=== PATIENT | male | born 1960 | race Caucasian/White ===

== ENCOUNTER 2022-11-18 11:16 | Inpatient (IN) | payer OTHER, SELFPAY ==
[2022-11-18] VITALS (34 sets, daily range): BP systolic 133–179; BP diastolic 89–116; PULSE 50–81; RESP 16–18; TEMP 36.1–36.4; O2SAT 94–99; BMI 5734.1; BMI 34.7
--- NOTE | 2022-11-18 11:56 | ED.NURSE ---
started #20 jelco as a saline lock in the right upper forearm. able to draw the labs and running a ED POC trop for patient. EKG done, Placed on cardiac montior.
[2022-11-18 12:11] LABS: Troponin, Point-of-Care* 0.02 ng/ml (0.01-0.04)
--- NOTE | 2022-11-18 12:37 | ED.DIZZY ---
HPI - Dizziness General Chief Complaint: Dizziness/Vertigo Stated Complaint: Dizzy, lightheaded Time Seen by Provider: 11/18/22 12:22 History of Present Illness HPI Narrative: This 62-year-old male comes in reporting an episode of lightheadedness. He states that he felt a little bit of congestion in his chest. He did not have any nausea, vomiting, shortness of breath, or obvious chest pain or pressure. He does state that his younger brother had an episode of lightheadedness with left arm pain about a year ago and needed 3 stents for coronary artery disease. He also states that his father at age 37 from heart disease. He denies having any exercise intolerance. A couple days ago he shoveled snow and did not have any symptoms. He feels back to normal at this time. Related Data Home Medications Medication Instructions Recorded Confirmed No Known Home Medications 11/18/22 11/18/22 Allergies Allergy/AdvReac Type Severity Reaction Status Date / Time No Known Drug Allergies Allergy Verified 11/18/22 11:40 Review of Systems Status of ROS: Reports: 10 or more systems reviewed and unremarkable except as noted in History and below Narrative: Constitutional: No fevers, no weight gain or loss. Eyes: No discharge. No vision changes. HENT: No congestion, no sore throat, no ear pain. Cardiovascular: No chest pain, no palpitations. Respiratory: No shortness of breath, no wheezes, no cough. Gastrointestinal: No abdominal pain, no vomiting, no diarrhea. Genitourinary: No dysuria, no hematuria. Musculoskeletal: Normal range of motion. Skin: No rashes, no pruritis. Neurological: No weakness, sensory change, speech change. Episode of lightheadedness as described above. Endo/Heme/Allergies: No bruising or bleeding. No polydipsia. Pysch: no suicidality, no anxiety, no insomnia. All other systems reviewed and are negative. PFSH PFSH Social History Smoking Status: Never smoker How often do you have a drink containing alcohol: 2-3 times a week How many standard drinks containing alcohol do you have on a typical day: 3 or 4 How often do you have six or more drinks on one occasion: Never AUDIT-C Alcohol total score: 4 Non-prescribed substance use: denies use Exam Narrative: Exam Narrative: Constitutional: Well-developed, well-nourished, no acute distress. HEENT: Normocephalic, atraumatic. Neck: Normal range of motion. Nontender. Supple. Heart: Regular. No murmurs. Normal rate. Intact distal pulses. Lungs: Clear to auscultation. No chest discomfort. No wheezes, rhonchi, or rales. Abdomen: Normal bowel sounds. Nontender. No rebound tenderness. Genitalia: Deferred. Back: No midline tenderness. Normal range of motion. Extremities: Normal range of motion. No injury. Skin: Intact. No rash. Warm. No erythema or pallor. Neurologic: No altered sensation. No weakness. Alert and oriented. Psychiatric: No suicidality. No anxiety or depression. No insomnia. Nursing notes and vitals signs are reviewed. Const: Vital Signs, click to edit/add: Vital Signs - 24 hr 11/18/22 11:33 11/18/22 12:05 11/18/22 12:06 Temperature 97.3 F L Pulse Rate 71 70 Pulse Rate [Right Pulse Oximeter] 81 Respiratory Rate 18 Blood Pressure 141/101 H Blood Pressure [Ri ght Upper Arm] 156/97 H Pulse Oximetry 97 99 99 Oxygen Delivery Me thod Room Air 11/18/22 12:30 11/18/22 12:31 11/18/22 12:32 Temperature Pulse Rate 70 71 68 Pulse Rate [Right Pulse Oximeter] Respiratory Rate Blood Pressure 155/106 H Blood Pressure [Ri ght Upper Arm] Pulse Oximetry 97 96 97 Oxygen Delivery Al thod 11/18/22 13:00 11/18/22 13:01 11/18/22 13:02 Temperature Pulse Rate 63 69 69 Pulse Rate [Right Pulse Oximeter] Respiratory Rate Blood Pressure 158/107 H Blood Pressure [Ri ght Upper Arm] Pulse Oximetry 96 96 95 Oxygen Delivery Al thod 11/18/22 13:30 11/18/22 13:32 11/18/22 13:33 Temperature Pulse Rate 68 65 65 Pulse Rate [Right Pulse Oximeter] Respiratory Rate Blood Pressure 144/107 H Blood Pressure [Ri ght Upper Arm] Pulse Oximetry 96 96 94 Oxygen Delivery Me thod 11/18/22 14:00 11/18/22 14:02 11/18/22 14:03 Temperature Pulse Rate 62 61 61 Pulse Rate [Right Pulse Oximeter] Respiratory Rate Blood Pressure 164/111 H Blood Pressure [Ri ght Upper Arm] Pulse Oximetry 96 96 95 Oxygen Delivery Me thod 11/18/22 14:30 11/18/22 14:32 11/18/22 15:00 Temperature Pulse Rate 56 L 56 L 59 L Pulse Rate [Right Pulse Oximeter] Respiratory Rate Blood Pressure 142/102 H Blood Pressure [Ri ght Upper Arm] Pulse Oximetry 96 94 95 Oxygen Delivery Me thod 11/18/22 15:01 11/18/22 15:02 11/18/22 15:30 Temperature Pulse Rate 59 L 61 58 L Pulse Rate [Right Pulse Oximeter] Respiratory Rate Blood Pressure 154/101 H Blood Pressure [Ri ght Upper Arm] Pulse Oximetry 95 94 96 Oxygen Delivery Me thod 11/18/22 15:32 11/18/22 15:33 11/18/22 16:04 Temperature Pulse Rate 63 60 59 L Pulse Rate [Right Pulse Oximeter] Respiratory Rate Blood Pressure 152/102 H Blood Pressure [Ri ght Upper Arm] Pulse Oximetry 96 96 97 Oxygen Delivery Me thod Course Vital Signs Vital signs: Initial Vital Signs Temperature 97.3 F L 11/18/22 11:33 Temperature Source Temporal Artery Scan 11/18/22 11:33 Pulse Rate 81 11/18/22 11:33 Respiratory Rate 18 11/18/22 11:33 Blood Pressure 156/97 H 11/18/22 11:33 Blood Pressure Mean 116 11/18/22 11:33 Blood Pressure Position Sitting 11/18/22 11:33 Pulse Oximetry 97 11/18/22 11:33 Oxygen Delivery Method 11/18/22 11:33 Vital Signs Temperature 97.3 F L 11/18/22 11:33 Pulse Rate 81 11/18/22 11:33 Respiratory Rate 18 11/18/22 11:33 Blood Pressure 156/97 H 11/18/22 11:33 Pulse Oximetry 97 11/18/22 11:33 Oxygen Delivery Method 11/18/22 11:33 Temperature 97.3 F L 11/18/22 11:33 Pulse Rate 59 L 11/18/22 16:04 Respiratory Rate 18 11/18/22 11:33 Blood Pressure 152/102 H 11/18/22 15:32 Pulse Oximetry 97 11/18/22 16:04 Oxygen Delivery Method 11/18/22 11:33 MDM - Dizziness MDM Narrative Medical decision making narrative: This patient comes in reporting some lightheadedness with mild diaphoresis that happened this morning when undergoing light activity. Initial EKG and troponin returned with normal results. Additionally lab results otherwise returned normal also. He has not had any further symptoms and feels normal. Repeat troponin returned at 0.05 which was increased from 0.02. A couple hours later, about 6 hours after his event this morning, his troponin I from the lab returns at 0.12. I did give him 4 baby aspirin. I spoke with the grocery store associate stonework supervisor at [facility], Dr. Clayton, who recommended observation overnight in the hospital with an echocardiogram tomorrow. If troponin is trending upward yet he can receive heparin. Lab Data Labs: Lab Results 11/18/22 11/18/22 11/18/22 Range/Units 12:05 12:10 12:10 WBC 4.52 (4.50-11.00) K/uL RBC 5.50 (4.30-5.90) m/uL Hgb 16.1 (13.5-17.5) gm/dL Hct 47.4 (37.0-53.0) % MCV 86 (80-100) fL MCH 29 (26-34) pg MCHC 34 (32-36) gm/dL RDW Coeff of Cheli 12.3 (11.5-15.5) % Plt Count 221 (140-440) K/uL Neut % (Auto) 58.2 (42.0-72.0) % Lymph % (Auto) 32.5 (20-44) % [place] % (Auto) 8.2 (0.0-11.0) % Eos % (Auto) 0.7 (0.0-7.0) % Baso % (Auto) 0.2 (0.0-3.0) % Neut # (Auto) 2.63 (1.7-7.0) K/uL Lymph # (Auto) 1.47 (0.90-2.90) K/uL [place] # (Auto) 0.40 (0.00-0.90) K/UL Eos # (Auto) 0.03 (0.00-0.50) K/uL Baso # (Auto) 0.01 (0.00-0.30) K/uL Sodium 136 (135-149) mmol/L Potassium 4.5 (3.6-5.1) mmol/L Chloride 106 (96-114) mmol/L Carbon Dioxide 24 (20-32) mmol/L BUN 18 (7-30) mg/dL Creatinine 1.0 (0.5-1.5) mg/dL Estimated Creat Clear 102.84 Estimated GFR 85 ml/min Glucose 87 (60-115) mg/dL Calcium 9.0 (8.4-10.6) mg/dL Troponin I (0.01-0.04) ng/mL SARS-CoV-2 (PCR) (Negative) POC Troponin I 0.02 (0.01-0.04) ng/ml 11/18/22 11/18/22 11/18/22 Range/Units 13:34 14:50 15:21 WBC (4.50-11.00) K/uL RBC (4.30-5.90) m/uL Hgb (13.5-17.5) gm/dL Hct (37.0-53.0) % MCV (80-100) fL MCH (26-34) pg MCHC (32-36) gm/dL RDW Coeff of Cheli (11.5-15.5) % Plt Count (140-440) K/uL Neut % (Auto) (42.0-72.0) % Lymph % (Auto) (20-44) % [place] % (Auto) (0.0-11.0) % Eos % (Auto) (0.0-7.0) % Baso % (Auto) (0.0-3.0) % Neut # (Auto) (1.7-7.0) K/uL Lymph # (Auto) (0.90-2.90) K/uL [place] # (Auto) (0.00-0.90) K/UL Eos # (Auto) (0.00-0.50) K/uL Baso # (Auto) (0.00-0.30) K/uL Sodium (135-149) mmol/L Potassium (3.6-5.1) mmol/L Chloride (96-114) mmol/L Carbon Dioxide (20-32) mmol/L BUN (7-30) mg/dL Creatinine (0.5-1.5) mg/dL Estimated Creat Clear Estimated GFR ml/min Glucose (60-115) mg/dL Calcium (8.4-10.6) mg/dL Troponin I 0.12 H* (0.01-0.04) ng/mL SARS-CoV-2 (PCR) Negative SARS-CoV-2 (Negative) POC Troponin I 0.05 H (0.01-0.04) ng/ml ECG Data Attestation: I personally reviewed and interpreted this ECG as follows: Interpretation: Normal sinus rhythm. Rate is 74 beats per minute. There are no ST or T-wave abnormalities. Repeat EKG at approximately 2:00 p.m. shows normal sinus rhythm. Rate is 60 beats per minute. There are no specific ST or T-wave abnormalities. Discharge Plan Discharge Clinical Impression: Acute coronary syndrome Patient Disposition: Admitted As Inpatient Condition: Unchanged Prescriptions: No Action No Known Home Medications Follow Up/Referrals: Anthony Light MD [Primary Care Provider] -
[2022-11-18 12:47] LABS: Basophils Absolute Auto 0.01 K/uL (0.00-0.30); Basophils Percent Auto 0.2 % (0.0-3.0); Eosinophils Absolute Auto 0.03 K/uL (0.00-0.50); Eosinophils Percent Auto 0.7 % (0.0-7.0); Hematocrit 47.4 % (37.0-53.0); Hemoglobin* 16.1 gm/dL (13.5-17.5); Immature Granulocytes Abs Auto 0.01 K/uL (0.00-0.30); Immature Granulocytes Pct Auto 0.2 %; Lymphocytes Absolute Auto 1.47 K/uL (0.90-2.90); Lymphocytes Percent Auto 32.5 % (20-44); Mean Corpuscular HGB Conc 34 gm/dL (32-36); Mean Corpuscular Hemoglobin 29 pg (26-34); Mean Corpuscular Volume 86 fL (80-100); Monocytes Percent Auto 8.2 % (0.0-11.0); Neutrophils Absolute Auto 2.63 K/uL (1.7-7.0); Neutrophils Percent Auto 58.2 % (42.0-72.0); Platelet Count* 221 K/uL (140-440); RDW Coefficient of Variation % 12.3 % (11.5-15.5); White Blood Count* 4.52 K/uL (4.50-11.00)
[2022-11-18 13:18] LABS: Chloride* 106 mmol/L (96-114); Potassium* 4.5 mmol/L (3.6-5.1); Sodium* 136 mmol/L (135-149)
[2022-11-18 13:21] LABS: Blood Urea Nitrogen* 18 mg/dL (7-30); Carbon Dioxide* 24 mmol/L (20-32); Est. Creatinine Clearance* 102.84; Estimated Glomerular Filt Rate 85 ml/min; Glucose* 87 mg/dL (60-115)
[2022-11-18 13:29] LABS: Slide Review Reflex No
[2022-11-18 13:58] LABS: Troponin, Point-of-Care* 0.05 ng/ml (0.01-0.04)
--- NOTE | 2022-11-18 14:05 | ED.NURSE ---
Repeat EKG done and shown to ED. Pt continues to report no pain.
[2022-11-18 15:35] LABS: Troponin I* 0.12 ng/mL (0.01-0.04)
--- NOTE | 2022-11-18 15:35 | ED.NURSE ---
critical lab: trop 0.12, notified Mario ROGERS at [phone]
[2022-11-18] MEDS: ASPIRIN 81 MG TAB.CHEW 324 MG PO (15:42)
[2022-11-18 16:11] LABS: SARS PCR* Negative SARS-CoV-2 (Negative)
--- NOTE | 2022-11-18 16:21 | W.PC.EDHO ---
Primary Language: Romanian Preferred Language: Orientation Status: [x] Alert & Oriented [] Slight Confusion [] Known Dx Dementia Transfers By: [x] Assist of 1 [] Assist of 2 [] Lift Active Medications Discontinued Medications Generic Name Dose Route Start Last Admin Trade Name Ara PRN Reason Stop Dose Admin Aspirin 324 mg 11/18/22 15:38 11/18/22 15:42 Aspirin 81 Mg Tab.Chew PO 11/18/22 15:39 324 mg ONCE ONE Administration Description of Symptoms ED Triage Present Problem patient was at work and sudden onset of dizziness Description and cp in the center of the chest. felt diaphoretic. sx resolved after 15 minutes. patient is concerned about heart issues as strong family hx of heart problems ED Triage Date of Onset of 11/18/22 Symptoms Lincoln Coma Scale Lincoln coma scale total score 15 Pain Pain Scale Used Numeric (1 - 10) IV Insertion/Site Date of IV Line Insertion [ 11/18/22 Right Antecubital] Oxygen Administration Pulse Oximetry 97 Pulse Oximetry 96 Pulse Oximetry 96 Pulse Oximetry 96 Pulse Oximetry 94 Pulse Oximetry 95 Pulse Oximetry 95 Pulse Oximetry 94 Pulse Oximetry 96 Pulse Oximetry 95 Pulse Oximetry 96 Pulse Oximetry 96 Pulse Oximetry 94 Pulse Oximetry 96 Pulse Oximetry 96 Pulse Oximetry 95 Pulse Oximetry 96 Pulse Oximetry 96 Pulse Oximetry 97 Pulse Oximetry 96 Pulse Oximetry 97 Pulse Oximetry 99 Pulse Oximetry 99 Pulse Oximetry 97 Oxygen Delivery Method Room Air Cardiac Monitoring EKG Method 12 Lead EKG Method 12 Lead
--- NOTE | 2022-11-18 16:28 | P.IMHP_ITS ---
Hospitalist- H&P: HPI History of Present Illness Date Seen: 11/18/22 Chief complaint: Dizzy, lightheaded Narrative: Jamar Goodman is a 62 year old male with no significant past medical history presenting for evaluation of dizziness. The patient was outside his home earlier today when he felt dizzy and lightheaded. He went inside his home, about 10 minutes later developed vague left upper sternal chest discomfort. He denied nausea, vomiting, abdominal pain. In the ED notable labs included Troponin of 0.12. EKG showed . He currently denies chest pain, pressure, sob. His SBP was noted to be in 170s. Per patient he is not on antihypertensive medications. He was started on aspirin. His case was discussed with [facility] cardiology who recommended admission for tele, echo and possible heparin if troponin trending increasing. Review of Systems Status of ROS: Reports: 10 or more systems reviewed and unremarkable except as noted in History and below [facility] Social History (Updated 11/18/22 @ 16:33 by Tyler Ulrich MD) Narrative: Lives alone in [facility]. Negative tobacco history. Highest level of school completed/degree received: high school graduate Smoking Status: Never smoker Second hand tobacco smoke exposure: No How often do you have a drink containing alcohol: 2-3 times a week How many standard drinks containing alcohol do you have on a typical day: 1 or 2 How often do you have six or more drinks on one occasion: Never AUDIT-C Alcohol total score: 3 Non-prescribed substance use: denies use Caffeine: Yes (1 cup daily) service: No Meds Home Medications and Allergies Home Medications Medication Instructions Recorded Confirmed Type No Known Home Medications 11/18/22 11/18/22 History Allergies Allergy/AdvReac Type Severity Reaction Status Date / Time No Known Drug Allergies Allergy Verified 11/18/22 11:40 Exam Narrative: Exam Narrative: Gen: no acute distress HEENT: NCAT EOMI mmm Neck: Supple CV: RRR normal s1 s2 Lungs: CTAB Abd: Soft,nt, nd Neuro: Alert, oriented, CN grossly intact; nonfocal screening?exam Psych: appropriate affect MSK: age appropriate muscle mass Skin; Warm, dry no rash on face Const: Vital Signs, click to edit/add: Vital Signs - 24 hr 11/18/22 11:33 11/18/22 12:05 11/18/22 12:06 Temperature 97.3 F L Pulse Rate 71 70 Pulse Rate [Right Pulse Oximeter] 81 Respiratory Rate 18 Blood Pressure 141/101 H Blood Pressure [Ri ght Upper Arm] 156/97 H Pulse Oximetry 97 99 99 Oxygen Delivery Me thod Room Air 11/18/22 12:30 11/18/22 12:31 11/18/22 12:32 Temperature Pulse Rate 70 71 68 Pulse Rate [Right Pulse Oximeter] Respiratory Rate Blood Pressure 155/106 H Blood Pressure [Ri ght Upper Arm] Pulse Oximetry 97 96 97 Oxygen Delivery Me thod 11/18/22 13:00 11/18/22 13:01 11/18/22 13:02 Temperature Pulse Rate 63 69 69 Pulse Rate [Right Pulse Oximeter] Respiratory Rate Blood Pressure 158/107 H Blood Pressure [Ri ght Upper Arm] Pulse Oximetry 96 96 95 Oxygen Delivery Me thod 11/18/22 13:30 11/18/22 13:32 11/18/22 13:33 Temperature Pulse Rate 68 65 65 Pulse Rate [Right Pulse Oximeter] Respiratory Rate Blood Pressure 144/107 H Blood Pressure [Ri ght Upper Arm] Pulse Oximetry 96 96 94 Oxygen Delivery Me thod 11/18/22 14:00 11/18/22 14:02 11/18/22 14:03 Temperature Pulse Rate 62 61 61 Pulse Rate [Right Pulse Oximeter] Respiratory Rate Blood Pressure 164/111 H Blood Pressure [Ri ght Upper Arm] Pulse Oximetry 96 96 95 Oxygen Delivery Me thod 11/18/22 14:30 11/18/22 14:32 11/18/22 15:00 Temperature Pulse Rate 56 L 56 L 59 L Pulse Rate [Right Pulse Oximeter] Respiratory Rate Blood Pressure 142/102 H Blood Pressure [Ri ght Upper Arm] Pulse Oximetry 96 94 95 Oxygen Delivery Me thod 11/18/22 15:01 11/18/22 15:02 11/18/22 15:30 Temperature Pulse Rate 59 L 61 58 L Pulse Rate [Right Pulse Oximeter] Respiratory Rate Blood Pressure 154/101 H Blood Pressure [Ri ght Upper Arm] Pulse Oximetry 95 94 96 Oxygen Delivery Me thod 11/18/22 15:32 11/18/22 15:33 11/18/22 16:04 Temperature Pulse Rate 63 60 59 L Pulse Rate [Right Pulse Oximeter] Respiratory Rate Blood Pressure 152/102 H Blood Pressure [Ri ght Upper Arm] Pulse Oximetry 96 96 97 Oxygen Delivery Nd thod Hospitalist - H&P: Result Labs Labs: Short CBC 11/18/22 Range/Units 12:10 WBC 4.52 (4.50-11.00) K/uL Hgb 16.1 (13.5-17.5) gm/dL Hct 47.4 (37.0-53.0) % Plt Count 221 (140-440) K/uL BMP 11/18/22 12:10 Sodium 136 Potassium 4.5 Chloride 106 Carbon Dioxide 24 BUN 18 Creatinine 1.0 Glucose 87 Calcium 9.0 Cardiac Enzymes 11/18/22 Range/Units 14:50 Troponin I 0.12 H* (0.01-0.04) ng/mL Assessment and Plan Assessment and plan (1) Chest pain: Status: Acute (2) Hypertension: Status: Acute Plan Assessment: Jamar Goodman is a 62 year old male with no significant past medical history presenting for evaluation of dizziness. The patient was outside his home earlier today when he felt dizzy and lightheaded. He went inside his home, about 10 minutes later developed vague left upper sternal chest discomfort. He denied nausea, vomiting, abdominal pain. In the ED notable labs included Troponin of 0.12. EKG showed . He currently denies chest pain, pressure, sob. His SBP was noted to be in 170s. Per patient he is not on antihypertensive medications. He was started on aspirin. His case was discussed with [facility] cardiology who recommended admission for tele, echo and possible heparin if troponin trending increasing. EKG Normal Sinus rhythm rate 74 1. chest pain, dizziness, rule out NSTEMI -serial troponin if increasing start therapeutic heparin -tele -echo -prn morphine and nitro -lipid panel in AM -npo midnight -obtain baseline cxr 2. Hypertension -start lisinopril -prn hydralazine Code-Full DVT ppx-heparin addendum; repeta trop elevated will start heparin
--- NOTE | 2022-11-18 17:13 | ED.NURSE ---
Report called to M/S RN.
--- NOTE | 2022-11-18 17:39 | CRLHL7_ITS ---
For Patients: As a result of the Century Cures Act, medical imaging exams and procedure reports are released immediately into your electronic medical record. You may view this report before your referring provider. If you have questions, please contact your health care provider. INDICATION: Chest pain. TECHNIQUE: Chest 1 view. COMPARISON: None. FINDINGS: The cardiomediastinal silhouette size is normal. Minimal atelectasis in left lower lobe. Possible 5 mm left lower lobe nodule. No consolidation, pleural effusion or pneumothorax. The visualized osseous structures are unremarkable for age. Impression: 1. No acute cardiopulmonary abnormality. 2. Possible 5 mm left lower lobe nodule. Recommend comparison with older prior exams available. Otherwise follow up with non emergent dedicated PA and lateral chest radiographs. Dictated by Cher Esquivel MD @ 11/18/2022 6:20:53 PM (Electronically Signed)
[2022-11-18] MEDS: lisinopriL 5 MG TABLET PO (18:04)
[2022-11-18 18:35] LABS: Troponin I* 0.27 ng/mL (0.01-0.04)
[2022-11-18 19:16] LABS: Hematocrit 46.4 % (37.0-53.0); Mean Corpuscular HGB Conc 35 gm/dL (32-36); Mean Corpuscular Hemoglobin 29 pg (26-34); Mean Corpuscular Volume 85 fL (80-100); Platelet Count* 214 K/uL (140-440); Red Blood Count 5.46 m/uL (4.30-5.90); White Blood Count* 4.84 K/uL (4.50-11.00)
[2022-11-18] MEDS: HEPARIN 25,000 UNIT/500 ML BAG 20 UNIT IV (19:25)
[2022-11-18] MEDS: HEPARIN 5,000 UNIT/0.5 ML INJ 4000 UNIT IVP (19:25)
[2022-11-18] MEDS: SODIUM CHLORIDE 0.9 % (FLUSH) 10 ML SYRINGE 5 ML IVF (19:27)
[2022-11-18 19:32] LABS: Slide Review Reflex No
[2022-11-18 19:34] LABS: INR 0.96 (0.91-1.10); Prothrombin Time 13.4 Seconds
[2022-11-18 19:35] LABS: Partial Thromboplastin Time* 37 Seconds (23-33)
--- NOTE | 2022-11-18 19:35 | PC.NURSE ---
Admission-- Pleasant and cooperative, alert and oriented patient was admitted to [facility] via wheelchair at approximately 1730. VSS, though hypertensive, and pt is afebrile. SPO2 maintained >90% on RA. He denied any chest pain or SOB. Telemetry shows NSR. Troponin noted to be as high as 0.27 and heparin drip was ordered by and initiated per protocol. Report to SUE Ruiz.
[2022-11-19] VITALS (8 sets, daily range): BP systolic 125–156; BP diastolic 83–93; PULSE 40–64; RESP 16–18; TEMP 35.8–37.1; O2SAT 95–97
[2022-11-19 02:36] LABS: Partial Thromboplastin Time* 64 Seconds (23-33)
--- NOTE | 2022-11-19 05:37 | PC.NURSE ---
Shift note: Pt is doing well, denied dizziness and light headedness. PTT at 0345 came out as 64, no change in heparin dose and rate made. Pt had adequate sleep. Independently ambulated to the BR. Vitally stable.
[2022-11-19 06:39] LABS: Hematocrit 47.1 % (37.0-53.0); Mean Corpuscular HGB Conc 34 gm/dL (32-36); Mean Corpuscular Hemoglobin 29 pg (26-34); Mean Corpuscular Volume 85 fL (80-100); Platelet Count* 223 K/uL (140-440); Red Blood Count 5.52 m/uL (4.30-5.90)
[2022-11-19 06:47] LABS: Slide Review Reflex No
[2022-11-19 06:57] LABS: INR 0.94 (0.91-1.10); Prothrombin Time 13.1 Seconds
[2022-11-19 06:58] LABS: Chloride* 107 mmol/L (96-114); Potassium* 4.2 mmol/L (3.6-5.1); Sodium* 137 mmol/L (135-149)
[2022-11-19 07:01] LABS: Blood Urea Nitrogen* 13 mg/dL (7-30); Carbon Dioxide* 25 mmol/L (20-32); Est. Creatinine Clearance* 78.07; Estimated Glomerular Filt Rate 85 ml/min; Glucose* 103 mg/dL (60-115)
[2022-11-19 07:15] LABS: Troponin I* 0.21 ng/mL (0.01-0.04)
[2022-11-19 10:22] LABS: Partial Thromboplastin Time* 54 Seconds (23-33)
[2022-11-19] MEDS: 5 % DEXTROSE/0.9% SOD CHLORIDE 1,000 ML 75 ML IV ×2 (11:41→23:51)
--- NOTE | 2022-11-19 13:07 | P.IMPN_ITS ---
Progress Note: A&P Assessment and plan (1) NSTEMI (non-ST elevated myocardial infarction): Status: Acute (2) Hypertension: Status: Acute (3) Chest pain: Status: Acute (4) Acute coronary syndrome: Status: Acute Plan Assessment: Jamar Goodman is a 62 year old male with no significant past medical history presenting for evaluation of dizziness. The patient was outside his home earlier today when he felt dizzy and lightheaded. He went inside his home, about 10 minutes later developed vague left upper sternal chest discomfort. He denied nausea, vomiting, abdominal pain. In the ED notable labs included Troponin of 0.12. EKG showed sinus rhythm. He currently denies chest pain, pressure, sob. His SBP was noted to be in 170s. Per patient he is not on antihypertensive medications. He was started on aspirin. His case was discussed with [facility] cardiology who recommended admission for tele, echo and possible heparin if troponin trending increasing. EKG Normal Sinus rhythm rate 74 1. NSTEMI; troponin 0.27->0.21 -heparin infusion -tele -echo -prn morphine and nitro -continue npo for now 2. Hypertension -started lisinopril -prn hydralazine Code-Full DVT ppx-heparin Dispo-Transfer to [facility] for Coronary angiogram/Cardiac Cath once bed available. Currently on waitlist at [facility], accepted to [place] but patient declined Subjective Date Seen: 11/19/22 Interval history: Trop 0.12->0.27->0.21 patient denies chest pain, sob, dizziness was accepted at [place] but patient declined due to distance Spoke with [facility] Cardiology; patient on waitlist at [facility] full Exam Narrative: Exam Narrative: Gen: No acute distress HEENT: NCAT EOMI MMM CV: Bradycardic; s1s2 LCTAB Abd: Soft, nt, nd Neuro: AOX3; CN intact Const: Vital Signs, click to edit/add: Vital Signs - 24 hr 11/18/22 13:30 11/18/22 13:32 11/18/22 13:33 Temperature Pulse Rate 68 65 65 Pulse Rate [Pulse Oximeter] Respiratory Rate Blood Pressure 144/107 H Blood Pressure [Le ft Arm] Blood Pressure [Ri ght Arm] Pulse Oximetry 96 96 94 Oxygen Delivery Fl thod 11/18/22 14:00 01/09/23 14:02 11/18/22 14:03 Temperature Pulse Rate 62 61 61 Pulse Rate [Pulse Oximeter] Respiratory Rate Blood Pressure 164/111 H Blood Pressure [Le ft Arm] Blood Pressure [Ri ght Arm] Pulse Oximetry 96 96 95 Oxygen Delivery Me thod 11/18/22 14:30 11/18/22 14:32 11/18/22 15:00 Temperature Pulse Rate 56 L 56 L 59 L Pulse Rate [Pulse Oximeter] Respiratory Rate Blood Pressure 142/102 H Blood Pressure [Le ft Arm] Blood Pressure [Ri ght Arm] Pulse Oximetry 96 94 95 Oxygen Delivery Me thod 11/18/22 15:01 11/18/22 15:02 11/18/22 15:30 Temperature Pulse Rate 59 L 61 58 L Pulse Rate [Pulse Oximeter] Respiratory Rate Blood Pressure 154/101 H Blood Pressure [Le ft Arm] Blood Pressure [Ri ght Arm] Pulse Oximetry 95 94 96 Oxygen Delivery Me thod 11/18/22 15:32 11/18/22 15:33 11/18/22 16:04 Temperature Pulse Rate 63 60 59 L Pulse Rate [Pulse Oximeter] Respiratory Rate Blood Pressure 152/102 H Blood Pressure [Le ft Arm] Blood Pressure [Ri ght Arm] Pulse Oximetry 96 96 97 Oxygen Delivery Me thod 11/18/22 16:07 11/18/22 16:30 11/18/22 16:32 Temperature Pulse Rate 54 L 58 L 62 Pulse Rate [Pulse Oximeter] Respiratory Rate Blood Pressure 179/111 H 164/108 H Blood Pressure [Le ft Arm] Blood Pressure [Ri ght Arm] Pulse Oximetry 96 95 96 Oxygen Delivery Me thod 11/18/22 16:33 11/18/22 17:00 11/18/22 17:02 Temperature Pulse Rate 56 L 60 57 L Pulse Rate [Pulse Oximeter] Respiratory Rate Blood Pressure 150/94 H Blood Pressure [Le ft Arm] Blood Pressure [Ri ght Arm] Pulse Oximetry 97 95 95 Oxygen Delivery Me thod 11/18/22 17:38 11/18/22 18:25 11/18/22 19:30 Temperature 97.6 F Pulse Rate 62 Pulse Rate [Pulse Oximeter] 57 L Respiratory Rate 16 Blood Pressure Blood Pressure [Le ft Arm] Blood Pressure [Ri ght Arm] 158/116 H Pulse Oximetry 98 98 Oxygen Delivery Me thod Room Air Room Air 11/18/22 19:30 11/18/22 23:00 11/18/22 23:00 Temperature 97.4 F L 97 F L Pulse Rate 52 L Pulse Rate [Pulse Oximeter] 68 50 L Respiratory Rate 16 18 Blood Pressure Blood Pressure [Le ft Arm] Blood Pressure [Ri ght Arm] 142/95 H 133/89 Pulse Oximetry 98 97 Oxygen Delivery Me thod Room Air Room Air 11/19/22 03:00 11/19/22 08:08 11/19/22 08:13 Temperature 96.8 F L 97.3 F L Pulse Rate 56 L Pulse Rate [Pulse Oximeter] 52 L 51 L Respiratory Rate 18 18 Blood Pressure Blood Pressure [Le ft Arm] 137/89 Blood Pressure [Ri ght Arm] 140/88 H Pulse Oximetry 97 96 Oxygen Delivery Fl thod Room Air Room Air 11/19/22 12:02 Temperature 97.9 F Pulse Rate Pulse Rate [Pulse Oximeter] 55 L Respiratory Rate 18 Blood Pressure Blood Pressure [Le ft Arm] Blood Pressure [Ri ght Arm] 142/89 H Pulse Oximetry 96 Oxygen Delivery Fl thod Room Air Labs Labs: Laboratory Results - last 24 hr 11/18/22 11/18/22 11/18/22 12:10 12:10 13:34 WBC 4.52 Corrected WBC RBC 5.50 Hgb 16.1 Hct 47.4 MCV 86 MCH 29 MCHC 34 RDW Coeff of Cheli 12.3 Plt Count 221 Neut % (Auto) 58.2 Lymph % (Auto) 32.5 Appling % (Auto) 8.2 Eos % (Auto) 0.7 Baso % (Auto) 0.2 Neut # (Auto) 2.63 Lymph # (Auto) 1.47 Appling # (Auto) 0.40 Eos # (Auto) 0.03 Baso # (Auto) 0.01 INR APTT Sodium 136 Potassium 4.5 Chloride 106 Carbon Dioxide 24 BUN 18 Creatinine 1.0 Estimated Creat Clear 102.84 Estimated GFR 85 Glucose 87 Calcium 9.0 Troponin I SARS-CoV-2 (PCR) POC Troponin I 0.05 H 11/18/22 11/18/22 11/18/22 14:50 15:21 17:51 WBC Corrected WBC RBC Hgb Hct MCV MCH MCHC RDW Coeff of Cheli Plt Count Neut % (Auto) Lymph % (Auto) [place] % (Auto) Eos % (Auto) Baso % (Auto) Neut # (Auto) Lymph # (Auto) Appling # (Auto) Eos # (Auto) Baso # (Auto) INR APTT Sodium Potassium Chloride Carbon Dioxide BUN Creatinine Estimated Creat Clear Estimated GFR Glucose Calcium Troponin I 0.12 H* 0.27 H* SARS-CoV-2 (PCR) Negative SARS-CoV-2 POC Troponin I 11/18/22 11/18/22 11/19/22 19:05 19:05 02:15 WBC 4.84 Corrected WBC RBC 5.46 Hgb 16.0 Hct 46.4 MCV 85 MCH 29 MCHC 35 RDW Coeff of Cheli Plt Count 214 Neut % (Auto) Lymph % (Auto) [place] % (Auto) Eos % (Auto) Baso % (Auto) Neut # (Auto) Lymph # (Auto) Appling # (Auto) Eos # (Auto) Baso # (Auto) INR 0.96 APTT 37 H 64 H Sodium Potassium Chloride Carbon Dioxide BUN Creatinine Estimated Creat Clear Estimated GFR Glucose Calcium Troponin I SARS-CoV-2 (PCR) POC Troponin I 11/19/22 11/19/22 11/19/22 06:21 06:21 06:21 WBC 4.30 L Cancelled Corrected WBC Cancelled RBC 5.52 Cancelled Hgb 16.0 Cancelled Hct 47.1 Cancelled MCV 85 Cancelled MCH 29 Cancelled MCHC 34 Cancelled RDW Coeff of Cheli Cancelled Plt Count 223 Cancelled Neut % (Auto) Cancelled Lymph % (Auto) Cancelled [place]ling % (Auto) Cancelled Eos % (Auto) Cancelled Baso % (Auto) Cancelled Neut # (Auto) Cancelled Lymph # (Auto) Cancelled Appling # (Auto) Cancelled Eos # (Auto) Cancelled Baso # (Auto) Cancelled INR 0.94 APTT Sodium Potassium Chloride Carbon Dioxide BUN Creatinine Estimated Creat Clear Estimated GFR Glucose Calcium Troponin I SARS-CoV-2 (PCR) POC Troponin I 11/19/22 11/19/22 06:21 09:59 WBC Corrected WBC RBC Hgb Hct MCV MCH MCHC RDW Coeff of Cheli Plt Count Neut % (Auto) Lymph % (Auto) [place] % (Auto) Eos % (Auto) Baso % (Auto) Neut # (Auto) Lymph # (Auto) Appling # (Auto) Eos # (Auto) Baso # (Auto) INR APTT 54 H Sodium 137 Potassium 4.2 Chloride 107 Carbon Dioxide 25 BUN 13 Creatinine 1.0 Estimated Creat Clear 78.07 Estimated GFR 85 Glucose 103 Calcium 9.0 Troponin I 0.21 H* SARS-CoV-2 (PCR) POC Troponin I
--- NOTE | 2022-11-19 15:06 | PC.NURSE ---
Heparin drip infusing at 1,000units/hr (20ml/hr) throughout shift.
[2022-11-19] MEDS: lisinopriL 5 MG TABLET PO (18:19)
[2022-11-19] MEDS: HEPARIN 25,000 UNIT/500 ML BAG 20 UNIT IV (19:59)
--- NOTE | 2022-11-19 20:55 | PC.NURSE ---
Calls placed looking for bed for transfer to [place], [facility], [facility], [facility], [facility]. None of these facilities have beds available at this time. Patient is on a wait list at [facility]. Patient has declined going out of [facility] and [place].
[2022-11-20 03:00] VITALS: BP 122/87; PULSE 55; RESP 18; TEMP 36.1; O2SAT 95
[2022-11-20 07:45] VITALS: BP 142/100; PULSE 57; RESP 14; TEMP 36.2; O2SAT 97
[2022-11-20 07:51] LABS: Partial Thromboplastin Time* 56 Seconds (23-33)
[2022-11-20 08:49] VITALS: PULSE 52
--- NOTE | 2022-11-20 10:31 | P.DS_ITS ---
DS: Providers Provider Date Seen: 11/20/22 Date of admission: 11/18/22 17:36 Primary care physician: Anthony Light MD Admitting Clinician: Tyler Ulrich MD Attending Physician on discharge: Tyler Ulrich MD Date of Discharge: 11/20/22 DS: Diagnosis Discharge Diagnosis (1) NSTEMI (non-ST elevated myocardial infarction): Status: Acute (2) Hypertension: Status: Acute DS: Summary Hospital Course Hospital Course: Assessment: Jamar Goodman is a 62 year old male with no significant past medical history presenting for evaluation of dizziness. The patient was outside his home earlier today when he felt dizzy and lightheaded. He went inside his home, about 10 minutes later developed vague left upper sternal chest discomfort. He denied nausea, vomiting, abdominal pain. In the ED notable labs included Troponin of 0.12. EKG showed sinus rhythm. He currently denies chest pain, pressure, sob. H is SBP was noted to be in 170s. Per patient he is not on antihypertensive medications. He was started on aspirin. His case was discussed with [facility] cardiology who recommended admission for tele, echo and possible heparin if troponin trend increasing. EKG Normal Sinus rhythm rate 74; subsequent Echo with sinus bradycardia 1. NSTEMI; troponin 0.27->0.21 -heparin infusion -tele -echo completed -prn morphine and nitro -continue npo for now 2. Hypertension -started lisinopril -prn hydralazine 3. Sinus Bradycardia noted on tele Echo Normal EF 60-65% RV Size enlarged, RV function borderline reduced No significant valvular disease Discharging to [facility] Time Spent with Patient Time attestation: Total time spent providing and/or coordinating discharge services: Exam Narrative: Exam Narrative: Gen: no acute distress HEENT: NCAT EOMI mmm Neck: Supple CV: Bradycardic normal s1 s2 Lungs: CTAB Abd: Soft,nt, nd Neuro: Alert, oriented, CN grossly intact; nonfocal screening?exam Psych: appropriate affect MSK: age appropriate muscle mass Skin; Warm, dry no rash on face Const: Vital Signs, click to edit/add: Vital Signs - 24 hr 11/19/22 12:02 11/19/22 15:00 11/19/22 16:30 Temperature 97.9 F 98.7 F Pulse Rate 53 L Pulse Rate [Pulse Oximeter] 55 L 53 L Respiratory Rate 18 16 Blood Pressure [Le ft Arm] 156/93 H Blood Pressure [Ri ght Arm] 142/89 H Pulse Oximetry 96 97 Oxygen Delivery Me thod Room Air Room Air 11/19/22 20:07 11/19/22 23:00 11/19/22 23:00 Temperature 97.8 F 96.5 F L Pulse Rate Pulse Rate [Pulse Oximeter] 64 52 L 52 L Respiratory Rate 18 18 18 Blood Pressure [Le ft Arm] 136/85 125/83 Blood Pressure [Ri ght Arm] Pulse Oximetry 96 95 Oxygen Delivery Me thod Room Air Room Air 11/19/22 23:00 11/20/22 03:00 11/20/22 07:45 Temperature 97 F L 97.1 F L Pulse Rate 40 L Pulse Rate [Pulse Oximeter] 55 L 57 L Respiratory Rate 18 14 Blood Pressure [Le ft Arm] 122/87 142/100 H Blood Pressure [Ri ght Arm] Pulse Oximetry 95 97 Oxygen Delivery Me thod Room Air Room Air 11/20/22 08:49 Temperature Pulse Rate 52 L Pulse Rate [Pulse Oximeter] Respiratory Rate Blood Pressure [Le ft Arm] Blood Pressure [Ri ght Arm] Pulse Oximetry Oxygen Delivery Me thod DS: Data Data Completed and Pending Labs on day of discharge: Labs from last 24 hours 11/20/22 06:24 APTT 56 H Discharge Plan Discharge Disposition: Xfer Other Date of Admission: 11/18/22 17:36 Attending Physician on Admission: Tlyer Ulrich Primary Care Provider: Anthony Light Condition: Unchanged Anticipated Discharge Date/Time: 11/20/22 10:45 Discharge Medications: No Action No Known Home Medications Discharge Orders: Discharge Order (Routine); Ordered 11/20/22 Ordered By: Tyler Ulrich Activity Level: Activity as Tolerated Discharge Diet: Other Diet Detail: NPO Follow Up Appointments: Anthony Light MD [Primary Care Provider] - Forms: [facility] Info Instructions Hospital Course: Assessment: Jamar Goodman is a 62 year old male with no significant past medical history presenting for evaluation of dizziness. The patient was outside his home earlier today when he felt dizzy and lightheaded. He went inside his home, about 10 minutes later developed vague left upper sternal chest discomfort. He denied nausea, vomiting, abdominal pain. In the ED notable labs included Troponin of 0.12. EKG showed sinus rhythm. He currently denies chest pain, pressure, sob. His SBP was noted to be in 170s. Per patient he is not on antihypertensive medications. He was started on aspirin. His case was discussed with [facility] cardiology who recommended admission for tele, echo and possible heparin if troponin trend increasing. EKG Normal Sinus rhythm rate 74; subsequent Echo with sinus bradycardia 1. NSTEMI; troponin 0.27->0.21 -heparin infusion -tele -echo completed -prn morphine and nitro -continue npo for now 2. Hypertension -started lisinopril -prn hydralazine 3. Sinus Bradycardia noted on tele Echo Normal EF 60-65% RV Size enlarged, RV function borderline reduced No significant valvular disease Discharging to [facility] Discharge Comments: Transfer to [facility]
[2022-11-20 11:35] VITALS: BP 140/100; PULSE 50; RESP 14; TEMP 36.3; O2SAT 98
[2022-11-20 11:57] VITALS: PULSE 57; RESP 14
[2022-11-20] MEDS: 5 % DEXTROSE/0.9% SOD CHLORIDE 1,000 ML 75 ML IV (13:22)
--- NOTE | 2022-11-20 13:42 | PC.NURSE ---
Patient transferred to [facility] at 1335 via [facility]. [id number] report given to Nurse Karissa at [facility].
== END 2022-11-20 13:35 | disposition other institution (70) | DRG 281 ==
LOC: ED 16:20 → MEDSURG 17:10
PROVIDERS: Admitting Provider Hospitalist; Emergency Provider Emergency Medicine Emergency Medical Services; PCP Family Medicine; Visit Provider Hospitalist
DX: R07.9 Chest pain, unspecified (principal); I21.4 Non-ST elevation (NSTEMI) myocardial infarction; I24.9 Acute ischemic heart disease, unspecified; I10 Essential (primary) hypertension; R61 Generalized hyperhidrosis
CPT/HCPCS: 36415; 71045; 80048; 84484; 85025; 85027; 85610; 85730; 87635; 93005; 93306; 99285; A9270; J1644; J7042

== ENCOUNTER 2022-11-20 13:25 | Outpatient (CLI) | payer OTHER, SELFPAY | END 2022-11-20 13:26 | disposition home or self-care (01) | LOC: AMB 11-21 03:33 | PROVIDERS: PCP Family Medicine; Visit Provider Family Medicine | DX: I21.4 Non-ST elevation (NSTEMI) myocardial infarction (principal); R77.8 Other specified abnormalities of plasma proteins | CPT/HCPCS: A0425; A0426; A0434 ==

== ENCOUNTER 2025-06-17 09:04 | Outpatient (CLI) | payer MEDICARE, BC, SELFPAY | END 2025-06-17 09:05 | disposition home or self-care (01) | PROVIDERS: PCP Family Medicine; Visit Provider Family Medicine | DX: E78.5 Hyperlipidemia, unspecified (principal); I10 Essential (primary) hypertension; Z12.5 Encounter for screening for malignant neoplasm of prostate | CPT/HCPCS: 80048; 80061; 84460; G0103 ==